=== PATIENT | female | born 1995 | race Caucasian/White ===

== ENCOUNTER 2018-07-03 12:35 | Emergency (ER) | payer OTHER ==
[2018-07-03 14:52] LABS: URINE BLOOD (Dip) POC Negative (NEGATIVE); URINE GLUCOSE (Dip) POC Negative (NEGATIVE); URINE KETONES (Dip) POC Negative (NEGATIVE); URINE LEUKOCYTE EST (Dip) POC Negative (NEGATIVE); URINE NITRITE (Dip) POC Negative (NEGATIVE); URINE TOTAL PROTEIN POC Negative (NEGATIVE)
== END 2018-07-03 15:40 | disposition home or self-care (01) ==
LOC: FTE 12:35
DX: N64.4 Mastodynia (principal)
CPT/HCPCS: 81003; 81025; 99282